=== PATIENT | female | born 1950 | race American Indian/Alaskan Native ===

== ENCOUNTER 2017-11-20 10:06 | Outpatient (CLI) | payer BC, MEDICARE ==
--- NOTE | 2017-11-21 15:45 | Magnetic Resonance Report ---
BILATERAL BREAST MRI WITHOUT AND WITH CONTRAST: 11/20/17 10:06:00 CLINICAL: High risk for breast cancer due to personal history of ADH of the left breast and family history. COMPARISON:11/12/17 bilateral screening mammogram. TECHNIQUE: Axial 1.0-mm T1 without, axial high resolution 2.0-mm T2 and axial 1.0-mm dynamic Vibrant high-resolution postcontrast T1 fat saturation sequences on a 1.5 Natalie magnet. The examination was performed with an 8 channel dedicated [place] breast coil. Post processing with CAD and subtraction was performed on an [employer] workstation. 19.0 cc of Multihance was injected without incident for the contrast portion of the exam. Consent was obtained prior to the administration of the contrast. FINDINGS: Right: Minimal background parenchymal enhancement. Lesion 1 is a subcutaneous enhancing lesion at 10 o'clock 3.1 cm from the nipple measuring 4.8 x 4.1 x 2.9 mm. It extends to the skin and demonstrates no T2 hyperintensity. It demonstrates heterogeneous enhancement with mixed kinetics, 78% peak enhancement, 35% type I persistent, 58% type II plateau and 7% type III washout. Lesion 2 is focal non-Mass enhancement in the central right breast 7 cm from the nipple. It measures 3.8 x 3.6 x 2.2 mm. It demonstrates heterogeneous enhancement with mixed kinetics, 2 is 02% peak enhancement, 29% type I persistent, 8% type II plateau and 63% type III washout. No other mass or suspicious enhancement of the right breast. No suspicious right axillary or right internal mammary lymph nodes. Left: Minimal background parenchyma enhancement. A biopsy clip is identified at 3 o'clock approximately 5 cm from the nipple. No mass or suspicious enhancement of the left breast. No suspicious left axillary or left internal mammary lymph nodes. IMPRESSION: 1. A 4.8 mm subcutaneous mass of the right breast at 10 o'clock 3 cm from the nipple. Recommend targeted right breast ultrasound for further evaluation. 2. Focal non-Mass enhancement in the central right breast measuring only 3.8 mm maximum. The enhancement pattern is suspicious but it may not be possible to biopsy such a small lesion. Consider six month followup MRI as an alternative to MRI guided biopsy. RIGHT BI-RADS 0 -- Needs Additional Imaging LEFT BI-RADS 1 -- Negative
== END 2017-11-20 10:07 | disposition home or self-care (01) ==
LOC: SPVIMAG 10:06
PROVIDERS: ATTEND Surgery
DX: N60.82 Other benign mammary dysplasias of left breast (principal); N63.10 Unspecified lump in the right breast, unspecified quadrant; N63.20 Unspecified lump in the left breast, unspecified quadrant
CPT/HCPCS: A9577; C8908; 77059

== ENCOUNTER → 2017-12-04 | Outpatient (CLI) | payer BC, MEDICARE ==
--- NOTE | 2017-12-04 13:59 | Ultrasound Report ---
RIGHT BREAST ULTRASOUND: 12/04/17 10:10:00 CLINICAL: A 4.8 mm superficial mass at 10 o'clock 3.1 cm from the nipple by MRI and central non-Mass enhancement 7 cm from the nipple by MRI. COMPARISON: 11/20/17 MRI FINDINGS: Ultrasound of the right breast demonstrated no mass, cyst or shadowing to correlate with the mass identified by MRI at 10 o'clock. However, there is a round circumscribed 3.5 mm mammographic density which correlates with the MRI finding and it has been mammographically stable for several years. No mass or other finding centrally at 7 o'clock to correlate with central non-Mass enhancement. IMPRESSION: 1. Negative right breast ultrasound with a mammographically stable benign mass at 10 o'clock approximately 3 cm from the nipple which correlates with the mass identified on MRI. 2. No central mass identified by ultrasound to correlate with central non-Mass enhancement. BI-RADS 1 - - Negative RECOMMENDATION: Six month followup right breast MRI to reevaluate the 3.8 mm central focal non-Mass enhancement. MRI guided biopsy may not be satisfactory at this time since the lesion is so small.
== END | disposition home or self-care (01) ==
LOC: SPVWC 10:10
PROVIDERS: ATTEND Surgery
DX: R92.8 Other abnormal and inconclusive findings on diagnostic imaging of breast (principal)

== ENCOUNTER 2021-01-12 13:28 | Outpatient (CLI) | payer MEDICARE ==
--- NOTE | 2021-01-12 17:45 | Mammography Report ---
DIGITAL SCREENING MAMMOGRAM WITH CAD, 01/12/2021 CLINICAL INFORMATION / INDICATION: Routine screening mammography. TECHNIQUE: Digital bilateral 2D mammography was obtained in the craniocaudal and mediolateral obliqu e projections. This examination was interpreted with the benefit of Computer-Aided Detection analysis . COMPARISON: 11/11/2018 FINDINGS: Breast Density: The breasts are heterogeneously dense, which may obscure small masses. No dominant mass, suspicious calcifications, or architectural distortion in either breast. Multiple benign bilateral calcifications are again noted, stable in appearance. Overall, no interval change in the mammogram. IMPRESSION: No mammographic evidence of malignancy. Follow up recommendation: Routine yearly BI-RADS Category 2: Benign. A "normal" or negative report should not discourage follow up or biopsy of a clinically significant f inding. A written summary of these findings will be mailed to the patient. The patient will be entered into a mammography reporting system which will generate a reminder letter for the patient's next appointmen t at the appropriate interval. The [employer] recommends yearly mammograms starting at age 40 and continuing as l dayna as a woman is in good health. Breast MRI is recommended for women with an approximate 20-25% or greater lifetime risk of breast cancer, including women with a strong family history of breast or ova rachelle cancer or who have been treated for Hodgkin's disease. Signer Name: Barbara Galvan MD Signed: 01/12/2021 5:41 PM Workstation Name: [employer]
== END 2021-01-12 13:29 | disposition home or self-care (01) ==
LOC: MAMMO 13:28
PROVIDERS: ATTEND Internal Medicine
DX: Z12.31 Encounter for screening mammogram for malignant neoplasm of breast (principal)
CPT/HCPCS: 77067